=== PATIENT | male | born 1950 | race Caucasian/White ===

== ENCOUNTER 2023-11-04 07:54 | Outpatient (CLI) | payer MEDICARE, OTHER, SELFPAY ==
--- NOTE | 2023-11-04 08:03 | CT_ITS ---
WS: [id number] LDCT LUNG CANCER SCREENING TECHNIQUE: Noncontrast CT of the chest with coronal and sagittal reformatted images. CLINICAL INFORMATION: NICOTINE DEPENDENCE,CIGARETTES COMPARISON: None. DLP: 95.80 mGy.cm DIvol: Mean CTDIvol: 2.50 (mGy) All CT scans at [facility] use at least one of these dose optimization techniques: automat ed exposure control; mA and/or kV adjustment per patient size (includes targeted exams where dose is matched to clinical indication); or iterative reconstruction. FINDINGS: No suspicious pulmonary parenchymal opacities. Lungs are well aerated. Aortic calcification. Coronary calcification. Small esophageal hiatal hernia. Partially visualized sm all LEFT adrenal adenoma. Splenic granulomas. Anterior wedging T12. Hypertrophic changes lower thorac ic spine. Prominent lymph node at the thoracic inlet measuring 12 mm nonspecific may be reactive. Oth erwise no mediastinal or hilar lymphadenopathy. Mild chronic appearing anterior wedging in the upper thoracic spine. CT/CT lung screening [id number] IMPRESSION: LUNG-RADS: 1-Negative FOLLOW UP: 12 Month: Continue annual screening with LDCT
== END 2023-11-04 07:55 | disposition home or self-care (01) ==
LOC: RAD 07:56
PROVIDERS: PCP Electrodiagnostic Medicine; Visit Provider Electrodiagnostic Medicine
DX: Z12.2 Encounter for screening for malignant neoplasm of respiratory organs (principal); F17.210 Nicotine dependence, cigarettes, uncomplicated; K44.9 Diaphragmatic hernia without obstruction or gangrene; D35.02 Benign neoplasm of left adrenal gland; D73.89 Other diseases of spleen; M48.54XA Collapsed vertebra, not elsewhere classified, thoracic region, initial encounter for fracture
CPT/HCPCS: 71271

== ENCOUNTER 2024-04-17 10:26 | Oncology outpatient (recurring) (ONCR) | payer MEDICARE, OTHER, SELFPAY ==
--- NOTE | 2024-04-03 14:35 | N.ONRAD NP_ITS ---
Radiation Oncology New Patient Visit Patient: Juan Gagnon Jr MR#: [id number] : 1950> Age: 73> Sex: Male> Dictated by: Dr. Cynthia Stiles Date of Service: 04/03/2024 Referring Physician(s) : Dr. Renteria Diagnosis: C61 - malignant neoplasm of prostate, Diagnosed 03/30/2024 (active). Adenocarcinoma the prostate Santos score 6 and 7, 6 of 14 biopsies positive, stage T1c Radiotherapy to date: Summary > No prior radiation therapy. Chief Complaint / History of Present Illness: Patient initially was having some mild issues with increased nocturia and weak stream when he was found to have an elevated PSA of 7.84 on October 25. This was repeated on November 08 and was 8.5. He then had an MRI done which showed a PI-RADS 5 level in the right prostate. He underwent guided biopsy on January 31. 6 of 14 of the biopsies were positive from both sides of the prostate. The range was Santos 6-7. He then had a GPS score obtained which was 70. He is here today to discuss the options for treatment. 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 Current Complaints / Review of Systems: . No pertinent positives were noted other than the increased nocturia of 2-3 times per night with a weak stream Vital Signs: Performed on 04/03/2024 1:03 PM BMI - 25.798 kg/m2 (high), Height - 75 in, Weight - 206.4 lbs, Temperature - 96.1 f, Pulse - 74 /min, Respiration - 18 /min, O2 Sat - 98 %, Pain - 0, Fatigue - 0 and BP - 157/ 73 mm(hg)(high/). Physical Exam: General: Patient is in no apparent distress today. He is accompanied by his . HEENT: Normocephalic atraumatic. Pupils are equal, sclera clear, extraocular muscles intact. Pulmonary: Respiratory is regular nonlabored cardiovascular: Regular rate and rhythm Abdomen: Mildly protuberant android pattern Extremities: Without obvious edema in the upper or lower extremities Neurological: Alert and orient x 3. Gait and speech within normal limits Psych: Affect appropriate for current situation Performance Status: 100 Pathology: Primary, c61 - malignant neoplasm of prostate, Diagnosed 03/30/2024 (active) . Impression: Adenocarcinoma the prostate Santos score 6 and 7 PSA 8.5 in October Plan: I reviewed with the patient and his his PSA and the Santos score. We talked about the staging for prostate cancer. We reviewed the signs and symptoms that he has which were not related to his prostate cancer. We discussed the various options from observation through surgery through the radiation. We reviewed the radiation option with the simulation and the daily treatment regiment. We discussed the risks and side effects both acute and long-term. All of her questions were answered as he really did not have any. His is actually more anxious than he is. At this point they have tentatively agreed to proceed with the radiation did like to come back the week after Mayuri. Will schedule him to undergo simulation at that time. We do do CT-guided imaging so we will need fiducials for his treatment to begin. He verbalized understanding of this and he was in agreement with the plan. He will call if any other problems or questions should arise. Signed by: 04/03/2024 2:33:32 PM <<Signature on File>> Time spent with patient:45 CPT Code: CPT Code:
--- NOTE | 2024-04-18 09:46 | ONCRAD TMN_ITS ---
Radiation Oncology Weekly Treatment Management Patient: Kalin Kang MR#: [id number] : 1950> Attending Physician: Dr. Cynthia Stiles Date of Service: 04/18/2024 Fractions: 2 out of 28 Referring Physician(s) : Diagnosis: C61 - Malignant neoplasm of prostate, Diagnosed 03/30/2024 (Active) Radiotherapy to date: Course: Prostate/sv, Treatment Site: [id number], Ref. ID: [id number], Energy: 15X, Dose/Fx (cGy): 250, #Fx: 2 / 28, Dose Correction (cGy): 0, Total Dose Delivered (cGy): 500, Start Date: 04/17/2024, End Date: 04/18/2024, Elapsed Days: 1 Reason for visit: The patient is being seen today as part of their regularly scheduled weekly on treatment visits to assess for acute toxicities from radiotherapy. Review of Systems: Patient had no questions or concerns Vital Signs: Performed on 04/18/2024 9:25 AM BMI - 24.898 kg/m2 (high), Height - 75 in, Weight - 199.2 lbs, Temperature - 96.9 f, Pulse - 64 /min, Respiration - 18 /min, O2 Sat - 94 % (low), Pain - 0, Fatigue - 0 and BP - 175/ 85 mm(hg)(high/). Physical Exam: No changes on exam Imaging: Radiation therapy imaging related to accurate target localization (i.e. KV, MV and CBCT) was reviewed. Appropriate changes, if any, were made to ensure treatment accuracy. Plan: Patient had no questions or issues today. I reviewed the risks and side effects with him today. Will continue with his treatments as planned Signed by: Dr. Cynthia Stiles 04/18/2024 9:45:12 AM
== END 2024-04-18 23:59 | disposition home or self-care (01) ==
PROVIDERS: PCP Electrodiagnostic Medicine; Visit Provider Radiology Radiation Oncology
DX: Z51.0 Encounter for antineoplastic radiation therapy (principal); C61 Malignant neoplasm of prostate
CPT/HCPCS: 36415; 77300; 77301; 77334; 77338; 77385; 84153; 99024; 99205

== ENCOUNTER 2024-05-11 09:10 | Oncology outpatient (recurring) (ONCR) | payer MEDICARE, OTHER, SELFPAY ==
--- NOTE | 2024-04-25 09:52 | ONCRAD TMN_ITS ---
Radiation Oncology Weekly Treatment Management Patient: Kalin Kang MR#: [id number] : 1950> Attending Physician: Dr. Cynthia Stiles Date of Service: 04/25/2024 Fractions: 6 out of 28 Referring Physician(s) : Diagnosis: C61 - Malignant neoplasm of prostate, Diagnosed 03/30/2024 (Active) Radiotherapy to date: Course: Prostate/sv, Treatment Site: [id number], Ref. ID: [id number], Energy: 15X, Dose/Fx (cGy): 250, #Fx: / , Dose Correction (cGy): 0, Total Dose Delivered (cGy): 1,500, Start Date: 04/17/2024, Elapsed Days: 8 Reason for visit: The patient is being seen today as part of their regularly scheduled weekly on treatment visits to assess for acute toxicities from radiotherapy. Review of Systems: Patient had 1 episode of diarrhea after a large breakfast yesterday Vital Signs: Performed on 04/25/2024 9:22 AM BMI - 25.148 kg/m2 (high), Height - 75 in, Weight - 201.2 lbs, Temperature - 95.8 f, Pulse - 66 /min, Respiration - 18 /min, O2 Sat - 96 %, Pain - 0, Fatigue - 0 and BP - 191/ 87 mm(hg)(high/). Physical Exam: No changes on exam Imaging: Radiation therapy imaging related to accurate target localization (i.e. KV, MV and CBCT) was reviewed. Appropriate changes, if any, were made to ensure treatment accuracy. Plan: He did ask if he could use cortisone on any areas that itch. I told him he could go ahead and do that. We talked about how he is doing well with minimal changes. We reviewed the follow-up plan as well. Will otherwise continue with his treatments as planned Signed by: Dr. Cynthia Stiles 04/25/2024 9:51:49 AM
--- NOTE | 2024-05-02 10:01 | ONCRAD TMN_ITS ---
Radiation Oncology Weekly Treatment Management Patient: Juan Gagnon Jr MR#: [id number] : 1950 Attending Physician: Dr. Cynthia Stiles Date of Service: 05/02/2024 Fractions: 10 out of 28 Referring Physician(s) : Diagnosis: C61 - Malignant neoplasm of prostate, Diagnosed 03/30/2024 (Active) Radiotherapy to date: Course: Prostate/sv, Site: [id number], Ref. ID: [id number], Energy: 15X, Dose/Fx (cGy): 250, #Fx: , Dose Correction (cGy): 0, Total Dose Delivered (cGy): 2,500, Start Date: 04/17/2024, Elapsed Days: 15 Reason for visit: The patient is being seen today as part of their regularly scheduled weekly on treatment visits to assess for acute toxicities from radiotherapy. Review of Systems: Patient has had a slightly weak stream at times. He denies any dysuria. His bowels are returning to normal. Vital Signs: Performed on 05/02/2024 9:38 AM BMI - 24.873 kg/m2 (high), Height - 75 in, Weight - 199 lbs, Temperature - 97.2 f, Pulse - 66 /min, Respiration - 16 /min, O2 Sat - 98 %, Pain - 0, Fatigue - 0 and BP - 197/ 98 mm(hg)(high). Physical Exam: No changes on exam Imaging: Radiation therapy imaging related to accurate target localization (i.e. KV, MV and CBCT) was reviewed. Appropriate changes, if any, were made to ensure treatment accuracy. Plan: Will continue with his treatments as planned Signed by: Dr. Cynthia Stiles 05/02/2024 10:00:04 AM
--- NOTE | 2024-05-09 10:01 | ONCRAD TMN_ITS ---
Radiation Oncology Weekly Treatment Management Patient: Kalin Kang MR#: [id number] : 1950> Attending Physician: Dr. Cynthia Stiles Date of Service: 05/09/2024 Fractions: 15 out of 28 Referring Physician(s) : Diagnosis: C61 - Malignant neoplasm of prostate, Diagnosed 03/30/2024 (Active) Radiotherapy to date: Course: Prostate/sv, Treatment Site: [id number], Ref. ID: [id number], Energy: 15X, Dose/Fx (cGy): 250, #Fx: 15 / 28, Dose Correction (cGy): 0, Total Dose Delivered (cGy): 3,750, Start Date: 04/17/2024, Elapsed Days: 22 Reason for visit: The patient is being seen today as part of their regularly scheduled weekly on treatment visits to assess for acute toxicities from radiotherapy. Review of Systems: Patient has had some decreased stream and hesitancy at the beginning of urination. He also said that he noticed that his legs are colder since he started treatment. Vital Signs: Performed on 05/09/2024 9:08 AM BMI - 24.773 kg/m2 (high), Height - 75 in, Weight - 198.2 lbs, Temperature - 97.0 f, Pulse - 70 /min, Respiration - 18 /min, O2 Sat - 96 %, Pain - 0, Fatigue - 0 and BP - 162/ 87 mm(hg)(high/). Physical Exam: No changes on exam Imaging: Radiation therapy imaging related to accurate target localization (i.e. KV, MV and CBCT) was reviewed. Appropriate changes, if any, were made to ensure treatment accuracy. Plan: We talked about why he has legs might be cooler. I told him it was not due to his radiation treatments but he has not been as active. The overall temperature however the last few weeks has been cooler. We talked about follow-up and how he will have his PSA drawn at a month and then every 3 months by his primary care. Will continue with his treatments as planned Signed by: Dr. Cynthia Stiles 05/09/2024 9:59:47 AM
== END 2024-05-11 23:59 | disposition home or self-care (01) ==
PROVIDERS: PCP Electrodiagnostic Medicine; Visit Provider Radiology Radiation Oncology
DX: Z51.0 Encounter for antineoplastic radiation therapy (principal); C61 Malignant neoplasm of prostate
CPT/HCPCS: 77336; 77385; 99024

== ENCOUNTER 2024-05-19 09:08 | Oncology outpatient (recurring) (ONCR) | payer MEDICARE, OTHER, SELFPAY ==
--- NOTE | 2024-05-16 09:43 | ONCRAD TMN_ITS ---
Radiation Oncology Weekly Treatment Management Patient: Juan Gagnon Jr MR#: [id number] : 1950 Attending Physician: Dr. Cynthia Stiles Date of Service: 05/16/2024 Fractions: 20 out of 28 Referring Physician(s) : Diagnosis: C61 - Malignant neoplasm of prostate, Diagnosed 03/30/2024 (Active) Radiotherapy to date: Course: Prostate/sv, Treatment Site: [id number], Ref. ID: [id number], Energy: 15X, Dose/Fx (cGy): 250, #Fx: , Dose Correction (cGy): 0, Total Dose Delivered (cGy): 5,000, Start Date: 04/17/2024, Elapsed Days: 29 Reason for visit: The patient is being seen today as part of their regularly scheduled weekly on treatment visits to assess for acute toxicities from radiotherapy. Review of Systems: Patient has some hesitancy and weak stream. He also has a soft stool once a day. He is developed in the last few days a rash on his shins which has been quite pruritic and has been itching it in his sleep. Vital Signs: Performed on 05/16/2024 9:17 AM BMI - 24.723 kg/m2 (high), Height - 75 in, Weight - 197.8 lbs, Temperature - 97.4 f, Pulse - 67 /min, Respiration - 18 /min, O2 Sat - 100 %, Pain - 0, Fatigue - 0 and BP - 175/ 84 mm(hg)(high/). Physical Exam: On exam he has no actual rash on the shins but he has excoriation jordan from where he scratched in his sleep. Imaging: Radiation therapy imaging related to accurate target localization (i.e. KV, MV and CBCT) was reviewed. Appropriate changes, if any, were made to ensure treatment accuracy. Plan: We talked about different things he can try for the skin. His will continue to treat it with a triple antibiotic ointment. She will add cortisone cream and moisturizing cream. I offered to make an appointment dermatology and they said they would wait a few days to see if it resolved. We talked about how it could have been related to the cold temperatures last week and how he might of gotten that area of his leg chapped. Will otherwise continue with his treatments as planned. Signed by: Dr. Cynthia Stiles 05/16/2024 9:42:09 AM
== END 2024-05-19 23:59 | disposition home or self-care (01) ==
PROVIDERS: PCP Electrodiagnostic Medicine; Visit Provider Radiology Radiation Oncology
DX: Z51.0 Encounter for antineoplastic radiation therapy (principal); C61 Malignant neoplasm of prostate
CPT/HCPCS: 77336; 77385; 99024

== ENCOUNTER 2024-05-26 09:08 | Oncology outpatient (recurring) (ONCR) | payer MEDICARE, OTHER, SELFPAY ==
--- NOTE | 2024-05-23 10:16 | ONCRAD TMN_ITS ---
Radiation Oncology Weekly Treatment Management Patient: Kalin Kang MR#: [id number] : 1950> Attending Physician: Dr. Cynthia Stiles Date of Service: 05/23/2024 Fractions: 25 out of 28 Referring Physician(s) : Diagnosis: C61 - Malignant neoplasm of prostate, Diagnosed 03/30/2024 (Active) Radiotherapy to date: Course: Prostate/sv, Treatment Site: [id number], Ref. ID: [id number], Energy: 15X, Dose/Fx (cGy): 250, #Fx: 25 / 28, Dose Correction (cGy): 0, Total Dose Delivered (cGy): 6,250, Start Date: 04/17/2024, Elapsed Days: 36 Reason for visit: The patient is being seen today as part of their regularly scheduled weekly on treatment visits to assess for acute toxicities from radiotherapy. Review of Systems: Patient has had increased problems with urgency of bowel movement and liquid stools 3 to 4-day. Vital Signs: Performed on 05/23/2024 9:04 AM BMI - 24.848 kg/m2 (high), Height - 75 in, Weight - 198.8 lbs, Temperature - 96.3 f, Pulse - 67 /min, Respiration - 18 /min, O2 Sat - 98 %, Pain - 0, Fatigue - 8 and BP - 180/ 88 mm(hg)(high/). Physical Exam: No changes on exam Imaging: Radiation therapy imaging related to accurate target localization (i.e. KV, MV and CBCT) was reviewed. Appropriate changes, if any, were made to ensure treatment accuracy. Plan: We talked about using Imodium today to see if and get his stools to slow down. This also may help with his urgency as well. Will otherwise continue with his treatment as planned Signed by: Dr. Cynthia Stiles 05/23/2024 10:14:03 AM
--- NOTE | 2024-05-29 08:38 | N.ONRD TS_ITS ---
Radiation Oncology Treatment Summary Patient: Kalin Sullivan>Juan> MR#: [id number] : 1950> Age: 74> Sex: Male Dictated by: Dr. Cynthia Stiles Date of Service: 05/26/2024 Referring Physician(s) : Diagnosis: C61 - Malignant neoplasm of prostate, Diagnosed 03/30/2024 (Active) Radiotherapy to Date: Course: Prostate/sv, , Treatment Site: [id number], Ref. ID: [id number], Energy: 15X, Dose/Fx (cGy): 250, #Fx: 28 / 28, Dose Correction (cGy): 0, Total Dose Delivered (cGy): 7,000, Start Date: 04/17/2024, End Date: 05/26/2024, Elapsed Days: 39 Clinical Summary: The patient tolerated RT well. Patient did well with essentially no toxicity Plan: End of treatment today. Continue on the above medication until the skin reaction resolves. Follow up in one month. Signed by: Dr. Cynthia Stiles>05/29/2024 8:37:05 AM <<Signature on File>>
== END 2024-06-16 23:59 | disposition home or self-care (01) ==
PROVIDERS: PCP Electrodiagnostic Medicine; Visit Provider Radiology Radiation Oncology
DX: Z51.0 Encounter for antineoplastic radiation therapy (principal); C61 Malignant neoplasm of prostate
CPT/HCPCS: 77336; 77385; 99024

== ENCOUNTER 2024-06-26 09:29 | Oncology outpatient (recurring) (ONCR) | payer MEDICARE, OTHER, SELFPAY ==
--- NOTE | 2024-06-26 10:24 | ONCRAD EPV_ITS ---
Radiation Oncology Established Patient Visit Patient: Juan Gagnon Jr [id number] : 1950 Age: 74 Sex: Male Dictated by: Dr. Cynthia Stiles Date of Service: 06/26/2024 Referring Physician(s) : Diagnosis: C61 - Malignant neoplasm of prostate, Diagnosed 03/30/2024 (Active) Patient returns today for his 1 month check. He says his bowel and bladder habits have returned to normal. His bladder function is actually better than it has been in years. He had his PSA drawn today. Radiotherapy to Date: Course: Prostate/sv, Treatment Site: [id number], Ref. ID: [id number], Energy: 15X, Dose/Fx (cGy): 250, #Fx: , Dose Correction (cGy): 0, Total Dose Delivered (cGy): 7,000, Start Date: 04/17/2024, End Date: 05/26/2024, Elapsed Days: 39 Current History: Current Medications: Allergies: Current Complaints / Review of Systems: . Vital Signs: Performed on 06/26/2024 9:51 AM BMI - 24.698 kg/m2 (high), Height - 75 in, Weight - 197.6 lbs, Temperature - 96.1 f, Pulse - 74 /min, Respiration - 16 /min, O2 Sat - 97 %, Pain - 0, Fatigue - 0 and BP - 180/ 94 mm(hg)(high). Physical Exam: General: Alert and oriented x 3. No acute distress. HEENT: Normocephalic atraumatic. Pupils equal extraocular muscles intact sclera clear. LUNGS respiratory is regular nonlabored. HEART: Regular rate and rhythm Performance Status: 100 Lab: None pending. PSA pending Pathology: Primary, c61 - malignant neoplasm of prostate, Diagnosed 03/30/2024 (active) . Imaging: See HPI Impression: Adenocarcinoma the prostate now 1 month from completion of treatment. Plan at this point he is PSA is currently pending. His pretreatment PSA was 8.5. We talked about checking his PSA every 3 months for the first year. I will put those orders through so he can get that done. His will call after each lab draw so that we can give her the results over the phone. Will otherwise see him back in a year or he will call if any problems should arise in the interim Signed by: 06/26/2024 10:22:22 AM <<Signature on File>> Time spent with patient: 20 CPT Code: * CPT Code: *
== END 2024-07-17 23:59 | disposition home or self-care (01) ==
LOC: ONCMED 09:30
PROVIDERS: PCP Electrodiagnostic Medicine; Visit Provider Radiology Radiation Oncology
DX: Z08 Encounter for follow-up examination after completed treatment for malignant neoplasm (principal); C61 Malignant neoplasm of prostate; Z92.3 Personal history of irradiation
CPT/HCPCS: 36415; 84153; 99024

== ENCOUNTER 2024-09-26 08:36 | Oncology outpatient (recurring) (ONCR) | payer MEDICARE, OTHER, SELFPAY | END 2024-10-16 23:59 | disposition home or self-care (01) | PROVIDERS: Radiology Radiation Oncology; PCP Electrodiagnostic Medicine; Visit Provider Radiology Radiation Oncology | DX: C61 Malignant neoplasm of prostate (principal) | CPT/HCPCS: 36415; 84153 ==

== ENCOUNTER 2024-11-14 15:33 | Outpatient (CLI) | payer MEDICARE, OTHER, SELFPAY ==
--- NOTE | 2024-11-14 15:56 | MR_ITS ---
WS: [id number] MRI BRAIN WITH AND WITHOUT CONTRAST HISTORY: MALIGNANT NEOPLASM OF PROSTATE COMPARISON: CT head 05/27/2017 TECHNIQUE: Multiplanar imaging performed through the brain with MultiHance 20 ml's IV. No acute infarcts are seen. Thao-white matter differentiation is well preserved. Moderate bilateral cerebral and cerebellar atrophy. Greater atrophy involving the frontal temporal lobes. There are a few scattered T2 and FLAIR signal hyperintensities some small vessel disease. Chronic ischemic changes noted bilaterally in the antoinette. No large infarct. Mild hippocampal atrophy. No susceptibility artifacts or prior lacunar infarcts. Ventricles and extra-axial spaces are normal. Clivus and pituitary gland are normal. Visualized posterior fossa and brainstem are also normal. Postcontrast images are negative for masses or vascular malformations. There is an artifact extending through the LEFT thalamus which is probably related to motion. There is increased signal on the postcontrast sequences but this is thought to be an artifact and not an enhancing lesion. No signal abnormality noted in this area on the noncontrast exam. Small caliber but patent distal RIGHT vertebral artery. Dural venous sinuses are normal. Paranasal sinuses: Small mucous retention cysts versus polyps in the RIGHT maxillary sinus. No air-fluid levels. Mastoid air cells: Normal. Calvarium and scalp: Normal. MR/MR head wo/w con [id number] IMPRESSION: 1. Normal diffusion imaging. No acute infarct. 2. Moderate bilateral cerebral and cerebellar atrophy with minimal small vesse l changes. Greater atrophy involving the frontal and temporal lobes. 3. Mild hippocampal atrophy. 4. Study is degraded by motion artifact. No enhancing masses identified.
[2024-11-14] MEDS: gadobenate dimeglumine 20 mL vial IV (16:43)
== END 2024-11-14 15:34 | disposition home or self-care (01) ==
LOC: RAD 15:37
PROVIDERS: PCP Electrodiagnostic Medicine; Visit Provider Electrodiagnostic Medicine
DX: Z12.89 Encounter for screening for malignant neoplasm of other sites (principal); C76.8 Malignant neoplasm of other specified ill-defined sites
CPT/HCPCS: 70553

== ENCOUNTER 2024-12-06 08:38 | Outpatient (CLI) | payer MEDICARE, OTHER, SELFPAY ==
--- NOTE | 2024-12-06 08:45 | CT_ITS ---
WS: [id number] CT chest w con* [id number] HISTORY: R UPPER LOBE PULMONARY NODULE TECHNIQUE: Axial imaging performed through the thorax. Coronal and sagittal reformats are submitted. All CT scans at [facility] use at least one of these dose optimization techniques: automated exposure control; mA and/or kV adjustment per patient size (includes targeted exams where dose is matched to clinical indication); or iterative reconstruction. CONTRAST: Omnipaque 350; 100 mL IV. DLP: 480.47 mGy.cm COMPARISON: 11/04/2023, chest radiograph 11/08/2024 Lungs and central airway: There is no corresponding pulmonary mass in the RIGHT upper lobe as seen on the recent chest radiograph. Benign calcified granuloma which is probably in the medial inferior RIGHT upper lobe. Lungs are clear. Pleura: Normal. No pleural effusion. Heart and pericardium: Normal size heart with no pericardial effusion. Mediastinum and terence: No mediastinum or hilar adenopathy. Vessels: Minimal atherosclerosis aorta. Normal size pulmonary artery and aorta. Chest wall and lower neck: No soft tissue masses. Upper abdomen: Normal size liver. No adrenal mass. Cholelithiasis without acute cholecystitis. Incompletely visualized cystic mass upper pole RIGHT kidney measures 3.5 x 2.6 cm. Osseous structures: 20% anterior wedging T12. Very slight loss of height involving T4. Remote healed rib fracture LEFT lateral sixth rib. CT/CT chest w con* [id number] IMPRESSION: 1. No pulmonary nodule or mass noted in the RIGHT upper lung to correspond to the radiographic finding. 2. No rib nodule. 3. Benign granuloma medial RIGHT lung. 4. Cholelithiasis without acute cholecystitis.
[2024-12-06 09:41] LABS: Blood Urea Nitrogen 16 mg/dL (8-23)
[2024-12-06] MEDS: iohexol 350 mg/mL 500 mL Btl (per mL) IV (09:43)
== END 2024-12-06 08:39 | disposition home or self-care (01) ==
LOC: RAD 08:38
PROVIDERS: PCP Electrodiagnostic Medicine; Visit Provider Electrodiagnostic Medicine
DX: R91.1 Solitary pulmonary nodule (principal); J84.10 Pulmonary fibrosis, unspecified; K80.20 Calculus of gallbladder without cholecystitis without obstruction
CPT/HCPCS: 71260; 82565; 84520

== ENCOUNTER 2024-12-28 09:14 | Oncology outpatient (recurring) (ONCR) | payer MEDICARE, OTHER, SELFPAY ==
[2024-12-28 10:03] LABS: Prostate Specific Antigen 2.690 ng/mL (0-4)
--- NOTE | 2024-12-28 13:01 | ONCRAD EPV_ITS ---
Radiation Oncology Established Patient Visit Patient: Juan Gagnon Jr [id number] : 1950 Age: 74 Sex: Male Dictated by: Dr. Bishnu Ríos Date of Service: 12/28/2024 Referring Physician(s) : Diagnosis: C61 - Malignant neoplasm of prostate, Diagnosed 03/30/2024 (Active) Radiotherapy to Date: Course: Prostate/sv, Treatment Site: [id number], Ref. 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 Stable 2 to 3 x nocturia. A bit of stable urinary leakage. Bowels loose and frequent since completing treatment. No prior screening colonoscopy. Still smoking. PSA prior to treatment 10/2023 7.84, 8.50. Post treatment: 09/2024 3.21, 12/28/2024 (today) 2.69 Current Complaints / Review of Systems: . Vital Signs: Performed on 12/28/2024 10:03 AM BMI - 25.498 kg/m2 (high), Height - 75 in, Weight - 204 lbs, Temperature - 96.4 f, Pulse - 68 /min, Respiration - 17 /min, O2 Sat - 96 %, Pain - 0, Fatigue - 0 and BP - 185/ 84 mm(hg)(high/). Physical Exam: General: Alert and oriented x 3. No acute distress. Rctal exam omitted. Performance Status: ECOG PS 0 Lab: see above Pathology: Primary, c61 - malignant neoplasm of prostate, Diagnosed 03/30/2024 (active) . Impression: St II(T1c, N0, M0) G2, adenocarcinoma of the prostate. Doing well with good biochemical control of his disease. Advised to quit smoking. Plan on follow up with PSA in 6 months. Signed by: 12/28/2024 12:59:49 PM <<Signature on File>> Time spent with patient: CPT Code: CPT Code:
== END 2025-01-16 23:59 | disposition home or self-care (01) ==
PROVIDERS: Radiology Radiation Oncology; PCP Electrodiagnostic Medicine; Visit Provider Radiology Radiation Oncology
DX: C61 Malignant neoplasm of prostate (principal); F17.200 Nicotine dependence, unspecified, uncomplicated; Z92.3 Personal history of irradiation
CPT/HCPCS: 36415; 84153; 99214